=== PATIENT | male | born 1955 | race African-American/Black ===

== ENCOUNTER 2022-09-30 23:30 | Inpatient (IN) | payer OTHER ==
[~2022-09-30] VITALS: Ht 162.6 cm; Wt 42.6 kg
[2022-10-01] MEDS ORDERED: SODIUM CHLORIDE FLUSH 10 ML SYR IV PRN
[2022-10-01 00:32] LABS: HEMOGLOBIN 11.9 g/dL (14.0-18.0); LYMPHOCYTES # (AUTO) 0.8 (1.0-3.2); LYMPHOCYTES % 12.3 % (18.0-39.1); MEAN CORPUSCULAR HEMOGLOBIN 24.7 pg (28-32); MEAN CORPUSCULAR HGB CONC 30.5 g/dL (31-35); MEAN CORPUSCULAR VOLUME 80.9 fL (81-99); MONOCYTES # (AUTO) 0.2 (0.2-0.8); MONOCYTES % 3.1 % (4.4-11.3); NEUTROPHILS # (AUTO) 5.8 (2.1-6.9); NEUTROPHILS % 84.2 % (38.7-80.0); PLATELET COUNT 474 x10e3/uL (140-360); RED BLOOD COUNT 4.82 x10e6/uL (4.3-5.7); RED CELL DISTRIBUTION WIDTH 15.4 % (11.7-14.4)
[2022-10-01 00:41] LABS: INR 0.99
[2022-10-01 00:42] LABS: PARTIAL THROMBOPLASTIN TIME 32.2 seconds (23.8-35.5)
[2022-10-01 00:50] LABS: ALANINE AMINOTRANSFERASE 11 IU/L (0-55); ALBUMIN 2.9 g/dL (3.5-5.0); ALBUMIN/GLOBULIN RATIO 0.6 (0.8-2.0); ALKALINE PHOSPHATASE 70 IU/L (40-150); ANION GAP 17.2 mmol/L (8-16); BLOOD UREA NITROGEN 14 mg/dL (7-26); BUN/CREATININE RATIO 21 (6-25); CARBON DIOXIDE 27 mmol/L (22-29); CHLORIDE 95 mmol/L (98-107); CREATININE, SERUM 0.67 mg/dL (0.72-1.25); GLUCOSE 109 mg/dL (74-118); POTASSIUM 5.2 mmol/L (3.5-5.1); SODIUM 134 mmol/L (136-145)
[2022-10-01 00:56] LABS: CLARITY,URINE CLOUDY (CLEAR); COLOR,URINE AMBER (YELLOW); KETONES,URINE TRACE (NEGATIVE); LEUKOCYTE ESTERASE ,URINE NEGATIVE (NEGATIVE); NITRITE,URINE NEGATIVE (NEGATIVE); PROTEIN,URINE DIPSTICK TRACE (NEGATIVE); URINE UROBILINOGEN 1 mg/dL (0.2 - 1)
[2022-10-01 01:04] LABS: BACTERIA,URINE MODERATE /HPF; EPITHELIAL CELLS,URINE FEW /LPF; RBC,URINE >50 /HPF (0-5)
[2022-10-01] MEDS: FAMOTIDINE 20 MG/2 ML VIAL IV SCH ×2 (02:40→18:06)
[2022-10-01] MEDS ORDERED: ONDANSETRON HCL INJ 2MG/ML 2ML 2 MG/ML VIAL IV PRN (03:00)
[2022-10-01] MEDS: SODIUM CHLORIDE 0.9% 1000ML 1,000 ML IV SCH ×2 (03:25→16:20)
[2022-10-01 08:20] VITALS: BP 128/86
[2022-10-01 09:16] VITALS: BP 112/65
[2022-10-01 09:40] VITALS: BP 128/86
[2022-10-01 12:18] VITALS: BP 125/75
[2022-10-01] MEDS ORDERED: PANTOPRAZOLE SOD 40 MG TABEC PO SCH (15:45)
[2022-10-01] MEDS: LEVETIRACETAM 500 MG TAB PO SCH (16:28)
[2022-10-01 17:48] VITALS: BP 143/88
[2022-10-01] MEDS ORDERED: ACETAMINOPHEN325 M1 PO (18:15)
[2022-10-01] MEDS ORDERED: ATORVASTATIN CA20 MG PO (18:16)
[2022-10-01] MEDS ORDERED: CARVEDILOL3.125 MG PO (18:17)
[2022-10-01] MEDS ORDERED: MIRALAX17 GM PO (18:23)
[2022-10-01] MEDS ORDERED: LISINOPRIL10 MG PO (18:23)
[2022-10-01] MEDS ORDERED: POTASSIUM CHLO10 ME1 PO (18:23)
[2022-10-01] MEDS ORDERED: URSODIOL300 MG PO (18:23)
[2022-10-01] MEDS ORDERED: SENNA-S 8.6-501 EACH PO (18:23)
[2022-10-01] MEDS ORDERED: FOLIC ACID0.4 MG PO (18:23)
[2022-10-01] MEDS ORDERED: FLUOXETINE HCL20 MG PO (18:23)
[2022-10-01] MEDS ORDERED: COLACE100 MG/10 PO (18:23)
[2022-10-01 20:00] VITALS: BP 142/85
[2022-10-02] VITALS (7 sets, daily range): BP systolic 92–146; BP diastolic 66–90
[2022-10-02 02:21] LABS: % IRON SATURATION 8 % (15-50); IRON 26 ug/dL (65-175); TOTAL IRON BINDING CAPACITY 323 ug/dL (261-478); TRANSFERRIN 231 mg/dL (174-364)
[2022-10-02] MEDS: SODIUM CHLORIDE 0.9% 1000ML 1,000 ML IV SCH (05:35)
[2022-10-02 06:21] LABS: BASOPHILS % 0.6 % (0.0-1.0); EOSINOPHILS % 0.3 % (0.0-6.0); HEMATOCRIT 27.4 % (38.2-49.6); MEAN CORPUSCULAR HEMOGLOBIN 25.9 pg (28-32); MEAN CORPUSCULAR HGB CONC 32.5 g/dL (31-35); MEAN CORPUSCULAR VOLUME 79.9 fL (81-99); MONOCYTES # (AUTO) 0.3 (0.2-0.8); NEUTROPHILS % 59.8 % (38.7-80.0); PLATELET COUNT 322 x10e3/uL (140-360); RED BLOOD COUNT 3.43 x10e6/uL (4.3-5.7); RED CELL DISTRIBUTION WIDTH 16.3 % (11.7-14.4)
[2022-10-02 06:48] LABS: HEMOGLOBIN 8.9 g/dL (14.0-18.0)
[2022-10-02 06:51] LABS: ALBUMIN 2.1 g/dL (3.5-5.0); ALBUMIN/GLOBULIN RATIO 0.5 (0.8-2.0); CALCIUM 8.5 mg/dL (8.4-10.2); CREATININE, SERUM 0.64 mg/dL (0.72-1.25)
[2022-10-02] MEDS: FAMOTIDINE 20 MG/2 ML VIAL IV SCH ×2 (08:39→20:53)
[2022-10-02] MEDS: LEVETIRACETAM 500 MG TAB PO SCH ×2 (08:40→16:51)
[2022-10-02] MEDS: SODIUM CHLORIDE FLUSH 10 ML SYR IV SCH ×2 (08:40→20:54)
[2022-10-02] MEDS: DEXTROSE 5%/0.45% SOD CHL 1,000 ML IV SCH ×2 (10:47→20:53)
[2022-10-02] MEDS ORDERED: DEXTROSE 50% SYRINGE 50 ML IV PRN (13:15)
[2022-10-02] MEDS ORDERED: POLYETHYLENE GLYCOL 3350 17 GM PACK PO PRN (17:15)
[2022-10-02] MEDS ORDERED: HYDRALAZINE HCL 20 MG/ML VIAL IV PRN (17:15)
[2022-10-02] MEDS: SENNA-S TABLET PO SCH ×2 (17:47→20:51)
[2022-10-02] MEDS: ATORVASTATIN 20 MG TAB PO SCH (20:51)
[2022-10-02] MEDS: CARVEDILOL 3.125 MG TAB PO SCH (20:51)
[2022-10-02] MEDS: ACETAMINOPHEN 325 MG TAB PO SCH (20:52)
[2022-10-03] MEDS ORDERED: CYANOCOBALAMIN INJ 1,000 MCG/ML VIAL IM ONE (00:30)
[2022-10-03 05:01] VITALS: BP 98/71
[2022-10-03] MEDS: DEXTROSE 5%/0.45% SOD CHL 1,000 ML IV SCH ×2 (05:23→16:39)
[2022-10-03 06:14] LABS: EOSINOPHILS % 0.4 % (0.0-6.0); HEMATOCRIT 27.5 % (38.2-49.6); HEMOGLOBIN 8.6 g/dL (14.0-18.0); LYMPHOCYTES % 21.4 % (18.0-39.1); MEAN CORPUSCULAR HEMOGLOBIN 24.7 pg (28-32); MEAN CORPUSCULAR HGB CONC 31.3 g/dL (31-35); MONOCYTES # (AUTO) 0.3 (0.2-0.8); MONOCYTES % 6.2 % (4.4-11.3); NEUTROPHILS # (AUTO) 3.4 (2.1-6.9); NEUTROPHILS % 71.6 % (38.7-80.0); PLATELET COUNT 331 x10e3/uL (140-360); RED BLOOD COUNT 3.48 x10e6/uL (4.3-5.7); RED CELL DISTRIBUTION WIDTH 15.6 % (11.7-14.4)
[2022-10-03 06:44] LABS: ALBUMIN/GLOBULIN RATIO 0.5 (0.8-2.0); ANION GAP 8.9 mmol/L (8-16); CALCIUM 8.2 mg/dL (8.4-10.2); CHOL/HDL RATIO 2.2 (3.9-4.7); CREATININE, SERUM 0.67 mg/dL (0.72-1.25); MAGNESIUM 2.1 MG/DL (1.3-2.1); PHOSPHORUS 2.5 MG/DL (2.3-4.7); POTASSIUM 3.9 mmol/L (3.5-5.1)
[2022-10-03 07:04] LABS: THYROID STIMULATING HORMONE 0.712 uIU/mL (0.350-4.940)
[2022-10-03 08:28] VITALS: BP 136/86
[2022-10-03 08:42] VITALS: BP 136/86
[2022-10-03] MEDS: IRON SUCROSE 100 MG in SODIUM CHLORIDE 0.9% 100 ML IV SCH (08:52)
[2022-10-03] MEDS: FAMOTIDINE 20 MG/2 ML VIAL IV SCH ×2 (08:53→21:49)
[2022-10-03] MEDS: ACETAMINOPHEN 325 MG TAB PO SCH ×3 (08:53→21:48)
[2022-10-03] MEDS: CYANOCOBALAMIN INJ 1,000 MCG/ML VIAL IM SCH (08:53)
[2022-10-03] MEDS: FOLIC ACID 1 MG TAB PO SCH (08:53)
[2022-10-03] MEDS: CARVEDILOL 3.125 MG TAB PO SCH ×2 (08:54→21:49)
[2022-10-03] MEDS: DOCUSATE SODIUM LIQD 100 MG/10 ML UDC PO SCH ×2 (08:54→16:43)
[2022-10-03] MEDS: FLUOXETINE HCL 20 MG CAP PO SCH (08:54)
[2022-10-03] MEDS: LEVETIRACETAM 500 MG TAB PO SCH ×2 (08:54→16:43)
[2022-10-03] MEDS: LISINOPRIL 10 MG TAB PO SCH (08:55)
[2022-10-03] MEDS: SODIUM CHLORIDE FLUSH 10 ML SYR IV SCH ×2 (08:58→21:49)
[2022-10-03] MEDS: POTASSIUM CHLORIDE 10MEQ EA PO SCH ×2 (08:58→16:42)
[2022-10-03] MEDS ORDERED: NON-FORMULARY MEDICATION (Folic Acid* 1 MG) PO SCH (09:00)
[2022-10-03] MEDS ORDERED: ONDANSETRON HCL 4 MG ORAL DISINTEGRATING TAB SL PRN (11:45)
[2022-10-03] MEDS: URSODIOL 250 MG TAB PO SCH ×2 (11:57→16:42)
[2022-10-03 13:10] VITALS: BP 108/63
[2022-10-03 16:21] VITALS: BP 137/80
[2022-10-03 20:00] VITALS: BP 132/78
[2022-10-03] MEDS: SENNA-S TABLET PO SCH (21:48)
[2022-10-03] MEDS: ATORVASTATIN 20 MG TAB PO SCH (21:48)
[2022-10-04] VITALS (7 sets, daily range): BP systolic 94–148; BP diastolic 63–91
[2022-10-04] MEDS: DEXTROSE 5%/0.45% SOD CHL 1,000 ML IV SCH ×2 (04:00→16:15)
[2022-10-04 06:44] LABS: CLARITY,URINE CLEAR (CLEAR); COLOR,URINE YELLOW (YELLOW); KETONES,URINE NEGATIVE (NEGATIVE); LEUKOCYTE ESTERASE ,URINE NEGATIVE (NEGATIVE); NITRITE,URINE NEGATIVE (NEGATIVE); PROTEIN,URINE DIPSTICK NEGATIVE (NEGATIVE); URINE UROBILINOGEN 0.2 mg/dL (0.2 - 1)
[2022-10-04 08:06] LABS: RBC,URINE >50 /HPF (0-5); WBC,URINE (MAN) 0-5 /HPF (0-5)
[2022-10-04 08:07] LABS: BACTERIA,URINE RARE /HPF; EPITHELIAL CELLS,URINE RARE /LPF
[2022-10-04] MEDS: ACETAMINOPHEN 325 MG TAB PO SCH ×3 (09:00→21:43)
[2022-10-04] MEDS: IRON SUCROSE 100 MG in SODIUM CHLORIDE 0.9% 100 ML IV SCH (09:00)
[2022-10-04] MEDS: CARVEDILOL 3.125 MG TAB PO SCH ×2 (09:00→21:45)
[2022-10-04] MEDS: URSODIOL 250 MG TAB PO SCH ×2 (09:00→16:13)
[2022-10-04] MEDS: CYANOCOBALAMIN INJ 1,000 MCG/ML VIAL IM SCH (09:00)
[2022-10-04] MEDS: SODIUM CHLORIDE FLUSH 10 ML SYR IV SCH ×2 (09:00→21:45)
[2022-10-04] MEDS: DOCUSATE SODIUM LIQD 100 MG/10 ML UDC PO SCH ×2 (09:00→16:15)
[2022-10-04] MEDS: POTASSIUM CHLORIDE 10MEQ EA PO SCH ×2 (09:00→16:13)
[2022-10-04] MEDS: LEVETIRACETAM 500 MG TAB PO SCH ×2 (09:00→16:14)
[2022-10-04] MEDS: FOLIC ACID 1 MG TAB PO SCH ×2 (16:10→16:14)
[2022-10-04] MEDS: LISINOPRIL 10 MG TAB PO SCH ×2 (16:10→16:13)
[2022-10-04] MEDS: SENNA-S TABLET PO SCH ×2 (16:11→21:45)
[2022-10-04] MEDS: FLUOXETINE HCL 20 MG CAP PO SCH ×2 (16:11→16:14)
[2022-10-04] MEDS: ATORVASTATIN 20 MG TAB PO SCH (21:43)
[2022-10-05] VITALS (9 sets, daily range): BP systolic 118–157; BP diastolic 73–95
[2022-10-05] MEDS: DEXTROSE 5%/0.45% SOD CHL 1,000 ML IV SCH ×2 (05:05→11:08)
[2022-10-05 06:57] LABS: BASOPHILS % 0.4 % (0.0-1.0); EOSINOPHILS # (AUTO) 0.1 (0.0-0.4); EOSINOPHILS % 2.1 % (0.0-6.0); HEMOGLOBIN 8.6 g/dL (14.0-18.0); LYMPHOCYTES # (AUTO) 0.9 (1.0-3.2); LYMPHOCYTES % 31.3 % (18.0-39.1); MEAN CORPUSCULAR HEMOGLOBIN 24.6 pg (28-32); MEAN CORPUSCULAR HGB CONC 29.7 g/dL (31-35); MEAN CORPUSCULAR VOLUME 83.1 fL (81-99); MONOCYTES # (AUTO) 0.3 (0.2-0.8); MONOCYTES % 10.9 % (4.4-11.3); NEUTROPHILS # (AUTO) 1.6 (2.1-6.9); NEUTROPHILS % 55.3 % (38.7-80.0); PLATELET COUNT 305 x10e3/uL (140-360); RED BLOOD COUNT 3.49 x10e6/uL (4.3-5.7); RED CELL DISTRIBUTION WIDTH 15.9 % (11.7-14.4)
[2022-10-05 07:13] LABS: ANION GAP 10.8 mmol/L (8-16); BLOOD UREA NITROGEN < 5 mg/dL (7-26); CALCIUM 8.4 mg/dL (8.4-10.2); CARBON DIOXIDE 23 mmol/L (22-29); CHLORIDE 106 mmol/L (98-107); CREATININE, SERUM 0.68 mg/dL (0.72-1.25); GLUCOSE 90 mg/dL (74-118); MAGNESIUM 1.8 MG/DL (1.3-2.1); PHOSPHORUS 3.2 MG/DL (2.3-4.7); POTASSIUM 3.8 mmol/L (3.5-5.1); SODIUM 136 mmol/L (136-145)
[2022-10-05 07:20] LABS: BUN/CREATININE RATIO 7 (6-25)
[2022-10-05] MEDS: LEVETIRACETAM 500 MG TAB PO SCH ×2 (09:00→17:00)
[2022-10-05] MEDS: CARVEDILOL 3.125 MG TAB PO SCH ×2 (09:00→21:00)
[2022-10-05] MEDS: POTASSIUM CHLORIDE 10MEQ EA PO SCH ×2 (09:00→17:00)
[2022-10-05] MEDS: SODIUM CHLORIDE FLUSH 10 ML SYR IV SCH ×2 (09:00→21:00)
[2022-10-05] MEDS: ACETAMINOPHEN 325 MG TAB PO SCH ×3 (09:00→21:00)
[2022-10-05] MEDS: SENNA-S TABLET PO SCH ×2 (09:00→21:00)
[2022-10-05] MEDS: URSODIOL 250 MG TAB PO SCH ×2 (09:00→17:00)
[2022-10-05] MEDS: DOCUSATE SODIUM LIQD 100 MG/10 ML UDC PO SCH ×2 (09:00→17:00)
[2022-10-05] MEDS: IRON SUCROSE 100 MG in SODIUM CHLORIDE 0.9% 100 ML IV SCH (11:06)
[2022-10-05] MEDS: CYANOCOBALAMIN INJ 1,000 MCG/ML VIAL IM SCH (11:08)
[2022-10-05] MEDS ORDERED: FENTANYL CITRATE/PF 100MCG/2 ML INJ ONE (12:27)
[2022-10-05] MEDS ORDERED: PROPOFOL IV EMULSION 10 MG/ML 20 ML VIAL ONE (13:26)
[2022-10-05] MEDS ORDERED: LIDOCAINE HCL 2% LOCAL INJ 5 ML SDV VIAL INJ ONE (13:26)
[2022-10-05] MEDS: ATORVASTATIN 20 MG TAB PO SCH (21:00)
[2022-10-06] VITALS (7 sets, daily range): BP systolic 102–155; BP diastolic 63–87
[2022-10-06] MEDS: DEXTROSE 5%/0.45% SOD CHL 1,000 ML IV SCH ×4 (01:00→22:40)
[2022-10-06] MEDS: FLUOXETINE HCL 20 MG CAP PO SCH (09:37)
[2022-10-06] MEDS: DOCUSATE SODIUM LIQD 100 MG/10 ML UDC PO SCH ×2 (09:37→17:00)
[2022-10-06] MEDS: SENNA-S TABLET PO SCH ×2 (09:37→22:39)
[2022-10-06] MEDS: POTASSIUM CHLORIDE 10MEQ EA PO SCH ×2 (09:37→17:11)
[2022-10-06] MEDS: CYANOCOBALAMIN INJ 1,000 MCG/ML VIAL IM SCH (09:37)
[2022-10-06] MEDS: ACETAMINOPHEN 325 MG TAB PO SCH (09:38)
[2022-10-06] MEDS: CARVEDILOL 3.125 MG TAB PO SCH ×2 (09:38→22:39)
[2022-10-06] MEDS: LEVETIRACETAM 500 MG TAB PO SCH ×2 (09:38→17:10)
[2022-10-06] MEDS: FOLIC ACID 1 MG TAB PO SCH (09:39)
[2022-10-06] MEDS: SODIUM CHLORIDE FLUSH 10 ML SYR IV SCH ×2 (09:39→22:40)
[2022-10-06] MEDS: URSODIOL 250 MG TAB PO SCH ×2 (09:39→17:11)
[2022-10-06] MEDS: IRON SUCROSE 100 MG in SODIUM CHLORIDE 0.9% 100 ML IV SCH (09:39)
[2022-10-06] MEDS: LISINOPRIL 10 MG TAB PO SCH (09:39)
[2022-10-06] MEDS ORDERED: ACETAMINOPHEN 325 MG TAB PO PRN (16:45)
[2022-10-06] MEDS: ATORVASTATIN 20 MG TAB PO SCH (22:39)
[2022-10-07] VITALS (8 sets, daily range): BP systolic 126–180; BP diastolic 71–92
[2022-10-07] MEDS ORDERED: SODIUM CHLORIDE 0.9% 0 ML ONE (09:27)
[2022-10-07] MEDS: DOCUSATE SODIUM LIQD 100 MG/10 ML UDC PO SCH ×2 (09:41→16:15)
[2022-10-07] MEDS: LISINOPRIL 10 MG TAB PO SCH (09:42)
[2022-10-07] MEDS: DEXTROSE 5%/0.45% SOD CHL 1,000 ML IV SCH ×2 (09:42→21:20)
[2022-10-07] MEDS: FOLIC ACID 1 MG TAB PO SCH (09:43)
[2022-10-07] MEDS: POTASSIUM CHLORIDE 10MEQ EA PO SCH ×2 (09:43→16:16)
[2022-10-07] MEDS: LEVETIRACETAM 500 MG TAB PO SCH ×2 (09:43→16:16)
[2022-10-07] MEDS: CARVEDILOL 3.125 MG TAB PO SCH ×2 (09:43→21:19)
[2022-10-07] MEDS: FLUOXETINE HCL 20 MG CAP PO SCH (09:43)
[2022-10-07] MEDS: SODIUM CHLORIDE FLUSH 10 ML SYR IV SCH ×2 (09:44→21:19)
[2022-10-07] MEDS: SENNA-S TABLET PO SCH ×2 (09:44→21:19)
[2022-10-07] MEDS: URSODIOL 250 MG TAB PO SCH ×2 (09:44→16:15)
[2022-10-07] MEDS: CYANOCOBALAMIN INJ 1,000 MCG/ML VIAL IM SCH (09:44)
[2022-10-07] MEDS: IRON SUCROSE 100 MG in SODIUM CHLORIDE 0.9% 100 ML IV SCH (09:44)
[2022-10-07] MEDS: ATORVASTATIN 20 MG TAB PO SCH (21:19)
[2022-10-08] VITALS: BP 128/72
[2022-10-08 04:00] VITALS: BP 181/67
[2022-10-08] MEDS: DEXTROSE 5%/0.45% SOD CHL 1,000 ML IV SCH ×2 (05:13→17:26)
[2022-10-08 05:47] LABS: BASOPHILS % 0.2 % (0.0-1.0); EOSINOPHILS # (AUTO) 0.1 (0.0-0.4); EOSINOPHILS % 0.8 % (0.0-6.0); HEMATOCRIT 27.8 % (38.2-49.6); HEMOGLOBIN 9.3 g/dL (14.0-18.0); LYMPHOCYTES # (AUTO) 0.7 (1.0-3.2); LYMPHOCYTES % 8.6 % (18.0-39.1); MEAN CORPUSCULAR HEMOGLOBIN 26.1 pg (28-32); MEAN CORPUSCULAR HGB CONC 33.5 g/dL (31-35); MEAN CORPUSCULAR VOLUME 77.9 fL (81-99); MONOCYTES # (AUTO) 0.4 (0.2-0.8); MONOCYTES % 4.9 % (4.4-11.3); NEUTROPHILS # (AUTO) 7.2 (2.1-6.9); NEUTROPHILS % 84.8 % (38.7-80.0); PLATELET COUNT 272 x10e3/uL (140-360); RED BLOOD COUNT 3.57 x10e6/uL (4.3-5.7); RED CELL DISTRIBUTION WIDTH 16.7 % (11.7-14.4)
[2022-10-08 06:09] LABS: ANION GAP 10.9 mmol/L (8-16); BLOOD UREA NITROGEN < 5 mg/dL (7-26); CALCIUM 8.5 mg/dL (8.4-10.2); CARBON DIOXIDE 23 mmol/L (22-29); CHLORIDE 102 mmol/L (98-107); CREATININE, SERUM 0.58 mg/dL (0.72-1.25); GLUCOSE 95 mg/dL (74-118); POTASSIUM 3.9 mmol/L (3.5-5.1); SODIUM 132 mmol/L (136-145)
[2022-10-08 06:11] LABS: BUN/CREATININE RATIO 9 (6-25)
[2022-10-08 08:02] VITALS: BP 141/85
[2022-10-08 08:07] VITALS: BP 141/85
[2022-10-08] MEDS ORDERED: SODIUM CHLORIDE 0.9% 100 ML ONE (08:25)
[2022-10-08] MEDS: CARVEDILOL 3.125 MG TAB PO SCH (08:33)
[2022-10-08] MEDS: SENNA-S TABLET PO SCH (08:33)
[2022-10-08] MEDS: LEVETIRACETAM 500 MG TAB PO SCH ×2 (08:33→17:00)
[2022-10-08] MEDS: URSODIOL 250 MG TAB PO SCH ×2 (08:33→17:00)
[2022-10-08] MEDS: DOCUSATE SODIUM LIQD 100 MG/10 ML UDC PO SCH ×2 (08:33→17:00)
[2022-10-08] MEDS: POTASSIUM CHLORIDE 10MEQ EA PO SCH ×2 (08:34→17:00)
[2022-10-08] MEDS: FLUOXETINE HCL 20 MG CAP PO SCH (08:34)
[2022-10-08] MEDS: FOLIC ACID 1 MG TAB PO SCH (08:34)
[2022-10-08] MEDS: CYANOCOBALAMIN INJ 1,000 MCG/ML VIAL IM SCH (08:34)
[2022-10-08] MEDS: LISINOPRIL 10 MG TAB PO SCH (08:35)
[2022-10-08] MEDS: SODIUM CHLORIDE FLUSH 10 ML SYR IV SCH (08:35)
[2022-10-08] MEDS ORDERED: ONDANSETRON ODT4 MG SL (12:46)
[2022-10-08] MEDS ORDERED: PROTONIX40 MG/ML PO (12:46)
[2022-10-08] MEDS ORDERED: Folic Acid PO (12:46)
[2022-10-08] MEDS ORDERED: ZOSYN 3.373.375 GM/1 IV (12:46)
[2022-10-08] MEDS ORDERED: KEPPRA500 MG PO (12:46)
[2022-10-08] MEDS ORDERED: ACETAMINOPHEN325 M1 PO (12:46)
[2022-10-08 16:16] VITALS: BP 133/86
[2022-10-08] MEDS ORDERED: PANTOPRAZOLE SOD 40 MG TABEC PO SCH (16:30)
[2022-10-08 20:00] VITALS: BP 127/91
== END 2022-10-08 21:32 | DRG 178 ==
LOC: ER 23:37 → ERHOLD 10-01 03:01 → MED/SURG2 10-01 07:31
PROVIDERS: ADMIT Internal Medicine; ATTEND Internal Medicine
PROC: 02HV33Z Insertion of Infusion Device into Superior Vena Cava, Percutaneous Approach (ICD-10-PCS; principal; 2022-10-02)
PROC: 05HY33Z Insertion of Infusion Device into Upper Vein, Percutaneous Approach (ICD-10-PCS; 2022-10-02)
PROC: 0DB98ZX Excision of Duodenum, Via Natural or Artificial Opening Endoscopic, Diagnostic (ICD-10-PCS; 2022-10-05)
PROC: 0DB78ZX Excision of Stomach, Pylorus, Via Natural or Artificial Opening Endoscopic, Diagnostic (ICD-10-PCS; 2022-10-05)
DX: J69.0 Pneumonitis due to inhalation of food and vomit (principal); E87.20 Acidosis, unspecified; G40.919 Epilepsy, unspecified, intractable, without status epilepticus; I69.351 Hemiplegia and hemiparesis following cerebral infarction affecting right dominant side; N30.00 Acute cystitis without hematuria; R64 Cachexia; Z68.1 Body mass index [BMI] 19.9 or less, adult; K22.10 Ulcer of esophagus without bleeding; K80.20 Calculus of gallbladder without cholecystitis without obstruction; Z86.73 Personal history of transient ischemic attack (TIA), and cerebral infarction without residual deficits; K21.9 Gastro-esophageal reflux disease without esophagitis; E78.5 Hyperlipidemia, unspecified; E11.69 Type 2 diabetes mellitus with other specified complication; D50.9 Iron deficiency anemia, unspecified; D51.9 Vitamin B12 deficiency anemia, unspecified; R13.10 Dysphagia, unspecified; E86.0 Dehydration; F29 Unspecified psychosis not due to a substance or known physiological condition; K44.9 Diaphragmatic hernia without obstruction or gangrene; K29.70 Gastritis, unspecified, without bleeding; K31.9 Disease of stomach and duodenum, unspecified
CPT/HCPCS: 0223U; 36415; 36569; 43239; 70450; 71045; 74176; 74230; 74470; 80048; 80053; 80061; 81001; 82140; 82270; 82607; 82746; 82948; 83036; 83540; 83735; 84100; 84132; 84443; 84466; 84484; 85025; 85045; 85610; 85730; 87040; 87086; 88305; 88312; 88342; 93005; 94760; 96361; 99251; 99285; J1756; J2001; J2543; J3010; J3420; J7030; J7050; J7799